=== PATIENT | male | born 1995 | race Caucasian/White ===

== ENCOUNTER 2017-03-16 13:35 | Emergency (ER) | payer BC ==
--- NOTE | 2017-03-16 14:06 | EDM.PDOC ---
ED HPI GENERAL MEDICAL PROBLEM - General Chief Complaint: Lower Extremity Injury/Pain Stated Complaint: RIGHT ANKLE INJURY Time Seen by Provider: 03/16/17 13:55 Source of Information: Reports: Patient History Limitations: Reports: No Limitations - History of Present Illness INITIAL COMMENTS - FREE TEXT/NARRATIVE: 22-year-old male presents for evaluation treatment of an ankle injury to the right ankle. Patient reports injury occurred about an hour and half prior to arrival in the ER. Patient reports he was walking in [place]. He states that he stepped onto a curb and fell onto an inverted ankle. He denies hearing a sound such as snapping or popping. He states he fell to the ground but did not his head nor lose consciousness. He reports significant pain to the right lateral ankle. Reports difficulty with walking' has only been able to limp. No obvious deformity. No bruising or swelling that he appreciated. No numbness or tingling. Took some ibuprofen prior to arrival in the ER. Right Ankle Pain Score (Numeric/FACES): 5 - Related Data Allergies Allergy/AdvReac Type Severity Reaction Status Date / Time MMR vaccine Allergy Cannot Uncoded 03/16/17 13:58 Remember Home Meds: Home Meds Methotrexate 25 mg PO CARRASCO 03/16/17 [History] Review of Systems - Review of Systems Review Of Systems: See Below Musculoskeletal: Reports: Joint Pain (right ankle). Denies: Joint Swelling Skin: Denies: Bruising, Wound Neurological: Reports: Difficulty Walking. Denies: Numbness, Tingling Trauma Exam - Physical Exam Exam: See Below Exam Limited By: No Limitations General Appearance: Reports: Alert, WD/WN, No Apparent Distress Respiratory Exam: Reports: No Respiratory Distress Cardiovascular: Reports: Normal Peripheral Pulses (2+ dorsalis pedis and posterior tibialis pulses bilterally), Regular Rate, Rhythm Extremities: Pain with Movement (pain with inverion and eversion of the right ankle), Tenderness (right distal lateral malleolus; minimal to the proximal lateral right malleolus; minimal across the dorsal right foot), Unable to Bear Weight Neurologic: Reports: No Motor/Sensory Deficits, Alert, Normal Mood/Affect Skin: Reports: Normal Color, Warm/Dry. Denies: Ecchymosis ED TRAUMA EXTREMITY PROCEDURES - Splinting Right Lower Extremity Splint site: ankle Pre-procedure NV status: normal Post-procedure NV status: normal Splint material: other (orthoglass) Splint design: posterior Applied & form fitted by: provider, nurse Provider post-splint application NV check: NV status normal, good position Complications: No Course - Vital Signs Last Recorded V/S: Last Vital Signs Temp 36.9 C 03/16/17 13:50 Pulse 66 03/16/17 15:00 Resp 18 03/16/17 15:00 BP 102/69 03/16/17 15:00 Pulse Ox 99 03/16/17 15:00 - Radiology Interpretation Free Text/Narrative:: xray 3 view of the right ankle shows no acute fractures or dislocations. Reviewed by myself and Dr. Caceres. - Re-Assessments/Exams Free Text/Narrative Re-Assessment/Exam: 03/16/17 14:11 Patient declined medication for pain at this time. 03/16/17 15:20 I reviewed the x-ray results the patient. We decided on crutches and a posterior slab splint for the ankle sprain. He is from [place]. Follow up with a primary care provider in [place] towards the end of the week or early next week. Instructed to rest, ice and elevate. Discharge instructions as documented. Departure - Departure Time of Disposition: 15:23 Disposition: Home, Self-Care 01 Condition: fair Clinical Impression: Right ankle sprain Qualifiers: Encounter type: initial encounter Involved ligament of ankle: unspecified ligament Qualified Code(s): S93.401A - Sprain of unspecified ligament of right ankle, initial encounter - Discharge Information Instructions: Ankle Sprain, [id number] Referrals: PCP,None [Primary Care Provider] - Forms: ED Department Discharge Additional Instructions: Use crutches and splint for the next week. Cover the splint with a bag or seran wrap when exposed to water. Follow up with your primary care provider if you continue to have pain and discomfort in one week. take OTC Tylenol or Motrin as needed for pain relief. Elevate the foot as much as you are to. Ice the ankle 4 or 5 times a day for about 30 minutes. Please return to the ER if your symptoms change or worsen.
[2017-03-16 16:04] VITALS: BP 102/69
--- NOTE | 2017-03-16 19:08 | CR ---
Right ankle: Three views of the right ankle were obtained. Comparison: No previous study. Ankle mortise is symmetric. No fracture, dislocation or other bony abnormality is seen. Impression: 1. No abnormality is seen on right ankle exam. Diagnostic code #1
== END 2017-03-16 15:25 | disposition home or self-care (01) ==
LOC: JD.ED 13:35
DX: S93.401A Sprain of unspecified ligament of right ankle, initial encounter (principal); X50.1XXA Overexertion from prolonged static or awkward postures, initial encounter; Z88.7 Allergy status to serum and vaccine
CPT/HCPCS: 29515; 73610-26-RT; 73610-RT; 99283-25; 99284-25